=== PATIENT | female | born 1955 | race Caucasian/White ===

== ENCOUNTER 2017-10-21 12:37 | Emergency (ER) | payer BC ==
--- NOTE | 2017-10-21 12:57 | ERPHSYRPT ---
- History of Present Illness Time Seen by Provider: 10/21/17 12:50 Source: patient Exam Limitations: no limitations Patient Subjective Stated Complaint: Pt states "I have been fighting the ears and throat thing for a week or so now, but I have been having bouts of diziness and nausea for a couple of days. I tried to go to the clinic but since I really have not eaten for the past couple of days they told me I needed to go to the ED for some fluids or something." Triage Nursing Assessment: Pt alert and oriented X 3, skin pwd. Pt gets unsteady when she turns her head, no apparent respiratory distress, equal computer applications developer , no facial droop, clear speech. Physician History: 62 y/o white female presents with sinus congestion, tenderness and dizziness for 2 to 3 weeks. pt only tx with otc meds. pt has not been eating well or drinking well in last 2 days. concern for onset of nausea today prompted her to visit the walk in clinic. they sent her here for ivf and further management. Timing/Duration: gradual onset (over 2 to 3 weeks) Severity: mild ENT Location: ear (R), ear (L), nose Prearrival Treatment: over the counter meds Modifying Factors: Improves With: nothing Associated Symptoms: ear pain (R), ear pain (L), dizziness, nasal congestion/ drainage, sinus infection, sore throat Allergies/Adverse Reactions: No Known Drug Allergies Allergy (Verified 10/21/17 12:50) Home Medications: Levothyroxine Sodium 75 Mcg [Synthroid 75 Mcg] 75 mcg PO DAILY 03/28/15 [ History] Pravastatin Sodium [Pravachol] 40 mg PO DAILY 03/28/15 [History] Lisinopril 10 mg [Zestril 10 MG] 10 mg PO DAILY 10/21/17 [History] Hx Tetanus, Diphtheria Vaccination/Date Given: No Hx Influenza Vaccination/Date Given: No Hx Pneumococcal Vaccination/Date Given: No Immunizations Up to Date: Yes - Review of Systems Constitutional: No Symptoms, No Fever Eyes: No Symptoms, No Eye Pain Ears, Nose, & Throat: Ear Pain, Nose Pain, Nose Congestion, Nose Discharge, Sinus Drainage, Throat Pain Respiratory: No Symptoms, No Cough, No Dyspnea, No Stridor, No Wheezing Cardiac: No Symptoms, No Chest Pain, No Palpitations, No Syncope Abdominal/Gastrointestinal: No Symptoms, No Abdominal Pain, No Nausea, No Vomiting, No Diarrhea Genitourinary Symptoms: No Symptoms, No Dysuria, No Frequency, No Hematuria Musculoskeletal: No Symptoms, No Back Pain, No Neck Pain, No Fall, No Injury Skin: No Symptoms Neurological: Dizziness, No Gait Changes, No Headache Psychological: No Symptoms, No Alcohol Abuse, No Drug Abuse, No Anxiety Endocrine: No Symptoms Hematologic/Lymphatic: No Symptoms Immunological/Allergic: No Symptoms All Other Systems: Reviewed and Negative - Past Medical History Pertinent Past Medical History: Yes Neurological History: No Pertinent History ENT History: No Pertinent History Cardiac History: High Cholesterol Respiratory History: No Pertinent History Endocrine Medical History: Hypothyroidism Musculoskeletal History: Osteoporosis GI Medical History: No Pertinent History History: No Pertinent History Psycho-Social History: No Pertinent History Female Reproductive Disorders: No Pertinent History - Past Surgical History Past Surgical History: Yes Neuro Surgical History: No Pertinent History Cardiac: No Pertinent History Respiratory: No Pertinent History Gastrointestinal: No Pertinent History Genitourinary: No Pertinent History Musculoskeletal: Orthopedic Surgery Female Surgical History: Section, Tubal Ligation, Other Other Surgical History: D/C, ABLASION, CARPAL TUNNEL - Social History Smoking Status: Never smoker Exposure to second hand smoke: No Drug Use: none Patient Lives Alone: No - Female History Hx Now: No - Nursing Vital Signs Nursing Vital Signs: Initial Vital Signs Temperature 97.8 F 10/21/17 12:44 Pulse Rate 72 10/21/17 12:44 Respiratory Rate 18 10/21/17 12:44 Blood Pressure 145/90 10/21/17 12:44 O2 Sat by Pulse Oximetry 95 10/21/17 12:44 Pain Scale Pain Intensity 2 - Physical Exam General Appearance: mild distress, alert, anxiety Eye Exam: bilateral eye: normal inspection, PERRL, EOMI Ear Exam: bilateral ear: auricle normal, canal normal, TM normal Nasal Exam: sinus tenderness Throat Exam: normal, pharynx normal, pharynx tenderness, No dental tenderness, No excessive drooling, No pharynx swelling, No tongue swollen, No uvula swelling , No voice changes Neck Exam: normal inspection, non-tender, supple, full range of motion, trachea midline, No lymphadenopathy (L) Cardiovascular/Respiratory Exam: chest non-tender, normal breath sounds, regular rate/rhythm, heart sounds normal, no respiratory distress, normal peripheral pulses, No subcutaneous emphysema Abdominal Exam: non-tender, soft, no organomegaly, No guarding, No tenderness Neurologic Exam: alert, oriented x 3, cooperative, 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 Skin Exam: normal color, warm, dry SpO2 Interpretation: borderline oxygenation SpO2: 95 Oxygen Delivery: Room Air - Course Nursing assessment & vital signs reviewed: Yes Ordered Tests: Active Orders 24 hr Category Date Time Status IV Insertion STAT Care 10/21/17 13:08 Active BMP Stat Lab 10/21/17 13:35 Completed CBC W DIFF Stat Lab 10/21/17 13:35 Completed Medication Summary Discontinued Medications Generic Name Dose Route Start Last Admin Trade Name Freq PRN Reason Stop Dose Admin Ceftriaxone Sodium/Dextrose 1 g in 50 mls @ 100 mls/hr 10/21/17 13:10 13:25 Rocephin 1 Gm-D5w 50 Ml Bag IV 10/21/17 13:39 100 mls/hr STAT STA 100 mls/hr Administration Sodium Chloride 1,000 mls @ 999 mls/hr 10/21/17 13:08 10/21/17 13:25 Sodium Chloride 0.9% 1000 Ml IV 10/21/17 14:08 999 mls/hr .Q1H1M STA Administration Sodium Chloride Confirm 10/21/17 13:18 Sodium Chloride 0.9% 1000 Ml Administered 10/21/17 13:19 Dose 1,000 mls @ ud .ROUTE .STK-MED ONE Ceftriaxone Sodium/Dextrose Confirm 10/21/17 13:18 Rocephin 1 Gm-D5w 50 Ml Bag Administered 10/21/17 13:19 Dose 1 g in 50 mls @ ud IV .STK-MED ONE Methylprednisolone Sodium Succinate 125 mg 10/21/17 13:09 10/21/17 13:23 Solu-Medrol 125 Mg IV 10/21/17 13:10 125 mg STAT ONE Administration Methylprednisolone Sodium Succinate Confirm 10/21/17 13:18 Solu-Medrol 125 Mg Administered 10/21/17 13:19 Dose 125 mg .ROUTE .STK-MED ONE Promethazine HCl 12.5 mg 10/21/17 13:08 10/21/17 13:23 Phenergan 25 Mg Inj IV 10/21/17 13:09 12.5 mg STAT ONE Administration Promethazine HCl Confirm 10/21/17 13:18 Phenergan 25 Mg Inj Administered 10/21/17 13:19 Dose 25 mg .ROUTE .STK-MED ONE Lab/Rad Data: Laboratory Result Diagrams 10/21/17 13:35 10/21/17 13:35 Laboratory Results 10/21/17 10/21/17 Range/Units 13:35 13:35 WBC 4.7 (4.0-10.5) K/mm3 RBC 4.54 (4.1-5.4) M/mm3 Hgb 13.8 (12.0-16.0) gm/dl Hct 41.6 (35-47) % MCV 91.6 (78-100) fl MCH 30.4 (26-32) pg MCHC 33.2 (32-36) g/dl RDW 13.5 (11.5-14.0) % Plt Count 252 (150-450) K/mm3 MPV 10.4 H (6-9.5) fl Gran % 69.8 H (36.0-66.0) % Eos # (Auto) 0.11 (0-0.5) Absolute Lymphs (auto) 0.95 L (1.0-4.6) Absolute Monos (auto) 0.33 (0.0-1.3) Lymphocytes % 20.3 L (24.0-44.0) % Monocytes % 7.1 (0.0-12.0) % Eosinophils % 2.4 (0.00-5.0) % Basophils % 0.4 (0.0-0.4) % Absolute Granulocytes 3.27 (1.4-6.9) Basophils # 0.02 (0-0.4) Sodium 139 (137-145) mmol/L Potassium 4.6 (3.5-5.1) mmol/L Chloride 105 (98-107) mmol/L Carbon Dioxide 25 (22-30) mmol/L Anion Gap 12.9 (5-15) MEQ/L BUN 15 (7-17) mg/dL Creatinine 0.64 (0.52-1.04) mg/dL Estimated GFR > 60.0 ML/MIN Glucose 111 H (74-106) mg/dL Calcium 9.4 (8.4-10.2) mg/dL - Progress Progress: improved, re-examined Progress Note: 10/21/17 14:13 pt states she is feeling much better. Counseled pt/family regarding: lab results, diagnosis, need for follow-up - Departure Time of Disposition: 14:14 Departure Disposition: Home Clinical Impression: Sinusitis, Dizziness Condition: Stable Critical Care Time: No Referrals: BRIAN SMITH MD [Primary Care Provider] - Additional Instructions: drink plenty of fluids. follow up with primary for further management Prescriptions: Azithromycin 250 mg [Zithromax 250 MG TABLET] 250 mg PO ZPACK #6 tablet Prednisone 10 mg [Deltasone 10 mg] 10 mg PO TID #12 tablet
[2017-10-21] MEDS ORDERED: Sodium Chloride 0.9% 1000 ML 1,000 ML IV STA (13:08)
[2017-10-21] MEDS ORDERED: Phenergan 25 MG INJ IV ONE (13:08)
[2017-10-21] MEDS ORDERED: solu-MEDROL 125 MG IV ONE (13:09)
[2017-10-21] MEDS ORDERED: ROCEPHIN 1 Gm-D5w 50 ml Bag** 1 G/50 ML IVPB IV STA (13:10)
[2017-10-21] MEDS ORDERED: ROCEPHIN 1 Gm-D5w 50 ml Bag** 1 G/50 ML IVPB IV ONE (13:18)
[2017-10-21] MEDS ORDERED: solu-MEDROL 125 MG ONE (13:18)
[2017-10-21] MEDS ORDERED: Phenergan 25 MG INJ ONE (13:18)
[2017-10-21] MEDS ORDERED: Sodium Chloride 0.9% 1000 ML 1,000 ML ONE (13:18)
[2017-10-21 13:38] LABS: BASOPHIL % 0.4 % (0.0-0.4); Basophil (Absolute #) 0.02 (0-0.4); Eosinophil % 2.4 % (0.00-5.0); Eosinophil (Absolute #) 0.11 (0-0.5); Granulocyte Absolute (ANC) 3.27 (1.4-6.9); Granulocytes % 69.8 % (36.0-66.0); Hematocrit 41.6 % (35-47); Hemoglobin 13.8 gm/dl (12.0-16.0); Lymphocyte (Absolute #) 0.95 (1.0-4.6); Lymphocytes % 20.3 % (24.0-44.0); Mean Cell Volume 91.6 fl (78-100); Mean Corpuscular Hemoglobin 30.4 pg (26-32); Mean Corpuscular Hgb Concent. 33.2 g/dl (32-36); Mean Platelet Volume 10.4 fl (6-9.5); Monocyte (Absolute #) 0.33 (0.0-1.3); Monocytes % 7.1 % (0.0-12.0); Platelet Count 252 K/mm3 (150-450); Red Blood Count 4.54 M/mm3 (4.1-5.4); Red Cell Distribution Width 13.5 % (11.5-14.0); White Blood Count 4.7 K/mm3 (4.0-10.5)
[2017-10-21 14:03] LABS: ANION GAP 12.9 MEQ/L (5-15); BLOOD UREA NITROGEN 15 mg/dL (7-17); CHLORIDE 105 mmol/L (98-107); Calcium 9.4 mg/dL (8.4-10.2); Carbon Dioxide 25 mmol/L (22-30); Creatinine 1 0.64 mg/dL (0.52-1.04); Glucose 111 mg/dL (74-106); Potassium 4.6 mmol/L (3.5-5.1); SODIUM 139 mmol/L (137-145)
[2017-10-21 14:13] VITALS: BP 151/87; PULSE 81
[2017-10-21 14:19] VITALS: O2SAT 95
== END 2017-10-21 14:30 | disposition home or self-care (01) ==
LOC: ED 12:37
DX: J32.9 Chronic sinusitis, unspecified (principal); R42 Dizziness and giddiness; Z79.899 Other long term (current) drug therapy
CPT/HCPCS: 36000; 36415; 80048; 85025; 96360; 96365; 96374; 96375; 99284; J0696; J2550; J2930

== ENCOUNTER 2018-08-23 18:40 | Emergency (ER) | payer BC ==
[2018-08-23 18:54] VITALS: O2SAT 97
[2018-08-23] MEDS ORDERED: Adacel Vial IM ONE ×2 (19:29→19:31)
--- NOTE | 2018-08-23 19:35 | ERPHSYRPT ---
- History of Present Illness Time Seen by Provider: 08/23/18 19:24 Source: patient Exam Limitations: no limitations Patient Subjective Stated Complaint: states was standing by a ladder and a hammer fell off ladder and struck her on the forehead. has lac to forehead Triage Nursing Assessment: ambulated to room per self. skin w/d, color normal, a/o times three. superficial 2cm lac to forehead with minimal bleeding. Physician History: 62-year-old white female arrives with complaint of head contusion and a small laceration to her forehead. According to the patient she was near a ladder and a sledgehammer fell approximately 2-3 feet and hit her in the head this occurred around 6 PM. She has some mild tenderness in the area she has no loss of consciousness she has no nausea no vomiting no dizziness she has no neurologic changes. She does have approximately 2 cm fairly superficial laceration to her anterior forehead at the hairline. Past medical history includes hypercholesterolemia and osteoporosis Past surgical history includes tubal ligation orthopedic surgery carpal tunnel D&C uterine ablation Patient states her last tetanus was around 10 years ago. Timing/Duration: today (6 PM) Severity: mild Associated Symptoms: other (mild tenderness anterior forehead, 2 cm laceration forehead), No nausea, No vomiting, No abdominal pain, No shortness of breath, No heartburn, No diaphoresis, No cough, No chills, No chest pain, No fever, No headaches, No loss of appetite, No malaise, No rash, No syncope, No seizure, No weakness Allergies/Adverse Reactions: No Known Drug Allergies Allergy (Verified 08/23/18 18:49) Home Medications: Levothyroxine Sodium 75 Mcg [Synthroid 75 Mcg] 75 mcg PO DAILY 03/28/15 [ History] Pravastatin Sodium [Pravachol] 40 mg PO DAILY 03/28/15 [History] Lisinopril 10 mg [Zestril 10 MG] 10 mg PO DAILY 10/21/17 [History] Hx Tetanus, Diphtheria Vaccination/Date Given: No Hx Influenza Vaccination/Date Given: Yes Hx Pneumococcal Vaccination/Date Given: Yes - Review of Systems Constitutional: Other (mild tenderness anterior forehead), No Fever, No Chills Eyes: No Symptoms Ears, Nose, & Throat: No Symptoms Respiratory: No Cough, No Dyspnea Cardiac: No Chest Pain, No Edema, No Syncope Abdominal/Gastrointestinal: No Abdominal Pain, No Nausea, No Vomiting, No Diarrhea Genitourinary Symptoms: No Dysuria Musculoskeletal: No Back Pain, No Neck Pain Skin: Other (2 cm fairly superficial laceration forehead) Neurological: No Dizziness, No Focal Weakness, No Gait Changes, No Headache, No Irritability, No Lethargy, No Paralysis, No Parasthesia, No Seizure, No Sensory Changes, No Speech Changes, No Tics, No Tremors, No Vertigo Psychological: No Symptoms Endocrine: No Symptoms All Other Systems: Reviewed and Negative - Past Medical History Pertinent Past Medical History: Yes Neurological History: No Pertinent History ENT History: No Pertinent History Cardiac History: High Cholesterol Respiratory History: No Pertinent History Endocrine Medical History: Hypothyroidism Musculoskeletal History: Osteoporosis GI Medical History: No Pertinent History History: No Pertinent History Psycho-Social History: No Pertinent History Female Reproductive Disorders: No Pertinent History - Past Surgical History Past Surgical History: Yes Neuro Surgical History: No Pertinent History Cardiac: No Pertinent History Respiratory: No Pertinent History Gastrointestinal: No Pertinent History Genitourinary: No Pertinent History Musculoskeletal: Orthopedic Surgery Female Surgical History: Section, Tubal Ligation, Other Other Surgical History: D/C, ABLASION, CARPAL TUNNEL - Social History Smoking Status: Never smoker Exposure to second hand smoke: No Drug Use: none Patient Lives Alone: No - Female History Hx Now: No - Nursing Vital Signs Nursing Vital Signs: Initial Vital Signs Temperature 97.9 F 08/23/18 18:43 Pulse Rate 80 08/23/18 18:43 Respiratory Rate 16 08/23/18 18:43 Blood Pressure 151/74 08/23/18 18:43 O2 Sat by Pulse Oximetry 97 08/23/18 18:43 Pain Scale Pain Intensity 7 - Physical Exam General Appearance: mild distress, alert, other (2 cm fairly superficial laceration anterior forehead at the hairline, mild surrounding tenderness with palpation) Eye Exam: PERRL/EOMI, eyes nml inspection Ears, Nose, Throat Exam: normal ENT inspection, TMs normal, pharynx normal, moist mucous membranes Neck Exam: normal inspection, non-tender, supple, full range of motion Respiratory Exam: normal breath sounds, lungs clear, No respiratory distress Cardiovascular Exam: regular rate/rhythm, normal heart sounds, normal peripheral pulses, capillary refill <2 sec Gastrointestinal/Abdomen Exam: soft, normal bowel sounds, No tenderness, No mass Extremity Exam: normal inspection, normal range of motion, pelvis stable Neurologic Exam: alert, oriented x 3, cooperative, 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 She does not have any loss of consciousness she has some tenderness in the anterior forehead which is fairly mild. She has a 2 cm fairly superficial laceration to the anterior forehead. Her last tetanus was 10 years ago. Will go ahead and have the nurses clean the laceration and apply Dermabond. Will update the patient's tetanus. (DTaP) - Departure Departure Disposition: Home Clinical Impression: Head contusion Qualifiers: Encounter type: initial encounter Contusion of head detail: unspecified part of head Qualified Code(s): S00.93XA - Contusion of unspecified part of head, initial encounter Laceration of forehead Qualifiers: Encounter type: initial encounter Qualified Code(s): S01.81XA - Laceration without foreign body of other part of head, initial encounter Condition: Fair Critical Care Time: No Referrals: BRIAN SMITH MD [Primary Care Provider] - Instructions: Closed Head Injury (DC) Additional Instructions: Return home. Do not apply ointments to Dermabond. Cold packs to area 24-48 hours. Tylenol every 4 hours as needed for pain. Return for acute distress severe symptoms or for any problems. Followup with your family doctor if any problems.
[2018-08-23 19:44] VITALS: BP 157/83; PULSE 74
== END 2018-08-23 19:50 | disposition home or self-care (01) ==
LOC: ED 18:40
DX: S00.93XA Contusion of unspecified part of head, initial encounter (principal); S01.81XA Laceration without foreign body of other part of head, initial encounter; W20.8XXA Other cause of strike by thrown, projected or falling object, initial encounter; E78.00 Pure hypercholesterolemia, unspecified; M81.0 Age-related osteoporosis without current pathological fracture
CPT/HCPCS: 12011; 90471; 90715; 99283

== ENCOUNTER 2023-09-05 01:58 | Emergency (ER) | payer MEDICARE ==
--- NOTE | 2023-09-05 02:10 | ERPHSYRPT ---
- History of Present Illness Time Seen by Provider: 09/05/23 02:10 Source: patient, family Exam Limitations: no limitations Physician History: This is a 67-year-old white female patient who was brought in to the hospital emergency department by her and is a patient of Dr. Smith. Her complaint today is relatively abrupt onset of sharp shooting pain that begins in her ear and shoots into right side of her face, right side of her neck and right upper chest primarily when lying flat. It began at 2200 on 09/04/2023. She has never had this before. There is been no new changes in her medication. There is been no trauma to the area. The pain subsides when standing and ambulating and worsens when she is lying flat. Patient has a history of hypertension, hy perlipidemia and hypothyroidism. She denies fever. She denies shortness of breath. Timing/Duration: abrupt onset Severity: moderate ENT Location: ear (R) Prearrival Treatment: no prearrival treatment Modifying Factors: Improves With: lying down (Worsens), other (Standing up and ambulating lessens pain) Associated Symptoms: ear pain (R), change in hearing, facial pain/swelling (Side), No ear drainage, No hearing loss, No jaw pain, No neck pain, No tooth pain, No difficulty swallowing Allergies/Adverse Reactions: No Known Drug Allergies Allergy (Unverified 09/05/23 02:08) Home Medications: Levothyroxine Sodium 75 Mcg [Synthroid 75 Mcg] 75 mcg PO DAILY 09/05/23 [History] Lisinopril 10 mg [Zestril 10 MG] 10 mg PO DAILY 09/05/23 [History] Pravastatin Sodium 40 mg PO DAILY 09/05/23 [History] Solifenacin Succinate [Vesicare] 5 mg PO DAILY 09/05/23 [History] Vibegron [Gemtesa] 75 mg PO DAILY 09/05/23 [History] Travel Risk - International Travel Have you traveled outside of the country in past 3 weeks: No - Emerging Infectious Disease Are you exhibiting symptoms associated with any current EIDs: No - Review of Systems Constitutional: No Symptoms Eyes: No Symptoms Ears, Nose, & Throat: Ear Pain (Right side) Respiratory: No Symptoms Cardiac: No Symptoms Abdominal/Gastrointestinal: No Symptoms Genitourinary Symptoms: No Symptoms Musculoskeletal: No Symptoms Skin: No Symptoms Neurological: No Symptoms Psychological: No Symptoms Hematologic/Lymphatic: No Symptoms Immunological/Allergic: No Symptoms All Other Systems: Reviewed and Negative - Past Medical History Pertinent Past Medical History: Yes - Past Surgical History Past Surgical History: Yes - Nursing Vital Signs Nursing Vital Signs: Initial Vital Signs Pulse Rate 82 09/05/23 02:06 Blood Pressure 160/80 09/05/23 02:06 O2 Sat by Pulse Oximetry 96 09/05/23 02:06 Pain Scale Pain Intensity 6 - Physical Exam General Appearance: no apparent distress, alert, anxiety Eye Exam: bilateral eye: normal inspection, PERRL, EOMI Ear Exam: bilateral ear: auricle normal, canal normal, TM normal Nasal Exam: normal inspection Throat Exam: normal, pharynx normal, foreign body, moist mucus membranes, No dental tenderness Neck Exam: normal inspection, non-tender, supple, full range of motion, trachea midline Cardiovascular/Respiratory Exam: chest non-tender, normal breath sounds, regular rate/rhythm, heart sounds normal, no respiratory distress Abdominal Exam: non-tender Neurologic Exam: alert, oriented x 3, cooperative, 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, nml cerebellar function, nml station & gait, sensation nml Skin Exam: normal color, warm, dry SpO2 Interpretation: normal O2 Delivery: Room Air - Course Nursing assessment & vital signs reviewed: Yes EKG Interpreted by Me: RATE (76), Sinus Rhythm, NORMAL AXIS, NORMAL INTERVALS, NORMAL QRS, NORMAL ST-T, Other (No acute ischemia) Ordered Tests: Active Orders 24 hr Category Date Time Status EKG-ER Only STAT Care 09/05/23 02:20 Active BMP Stat Lab 09/05/23 02:20 Completed CBC W DIFF Stat Lab 09/05/23 02:35 Completed CMP Stat Lab 09/05/23 02:20 Completed MAG [MAGNESIUM] Stat Lab 09/05/23 02:20 Completed TROPONIN Q4H Lab 09/05/23 02:30 Completed TROPONIN Q4H Lab 09/05/23 06:30 Ordered TROPONIN Q4H Lab 09/05/23 10:30 Ordered Medication Summary Discontinued Medications Generic Name Dose Route Start Last Admin Trade Name Freq PRN Reason Stop Dose Admin Amitriptyline HCl 10 mg 09/05/23 02:24 09/05/23 02:32 Amitriptyline Hcl 10 Mg Tablet PO 09/05/23 02:25 10 mg STAT ONE Administration Prednisone 20 mg 09/05/23 02:24 09/05/23 02:32 Prednisone 20 Mg Tablet PO 09/05/23 02:25 20 mg STAT ONE Administration Prednisone Confirm 09/05/23 02:27 Prednisone 20 Mg Tablet Administered 09/05/23 02:28 Dose 20 mg .ROUTE .STK-MED ONE Lab/Rad Data: Laboratory Result Diagrams 09/05/23 02:35 09/05/23 02:20 Laboratory Results 09/05/23 09/05/23 09/05/23 Range/Units 02:35 02:30 02:20 WBC 5.3 (3.98-10.04) x10^3/uL RBC 4.41 (3.93-5.22) x10^6/uL Hgb 13.2 (11.2-15.7) g/dL Hct 40.8 (34.1-44.9) % MCV 92.5 (79.4-94.8) fL MCH 29.9 (25.6-32.2) pg MCHC 32.4 (32.2-35.5) g/dL RDW 13.2 (11.7-14.4) % Plt Count 235 (182-369) x10^3/uL MPV 10.5 (9.4-12.3) fL Gran % 42.0 (34.0-71.1) % Immature Gran % (Auto) 0.2 (0.001-0.429) % Nucleat RBC Rel Count 0.0 (0.00-0.2) % Eos # (Auto) 0.21 (0.04-0.36) x10^3/uL Immature Gran # (Auto) 0.01 (0.001-0.031) x10^3u/L Absolute Lymphs (auto) 2.24 (1.18-3.74) x10^3/uL Absolute Monos (auto) 0.56 (0.24-0.86) x10^3/uL Absolute Nucleated RBC 0.00 (0.00-0.012) x10^3u/L Lymphocytes % 42.3 (19.3-51.7) % Monocytes % 10.6 (4.7-12.5) % Eosinophils % 4.0 (0.7-5.8) % Basophils % 0.9 (0.1-1.2) % Absolute Granulocytes 2.23 (1.56-6.13) x10^3/uL Basophils # 0.05 (0.01-0.08) x10^3/uL Sodium 138 (135-145) mmol/L Potassium 4.2 (3.5-5.1) mmol/L Chloride 107 (98-107) mmol/L Carbon Dioxide 23 (22-30) mmol/L Anion Gap 12.3 (5-15) MEQ/L BUN 18 H (7-17) mg/dL Creatinine 0.78 (0.52-1.04) mg/dL Estimated GFR 82.7 ML/MIN Glucose 115 H (74-106) mg/dL Calcium 9.1 (8.4-10.2) mg/dL Magnesium 2.2 (1.6-2.3) mg/dL Total Bilirubin 0.60 (0.2-1.3) mg/dL AST 25 (14-36) U/L ALT 26 (0-35) U/L Alkaline Phosphatase 118 (38-126) U/L Troponin I < 0.012 (0.000-0.033) ng/mL Serum Total Protein 6.5 (6.3-8.2) g/dL Albumin 3.8 (3.5-5.0) g/dL - Progress Progress Note: 09/05/23 02:30 My medical decision making and the assignment of moderate complexity to this patient's medical issue today is based on review of the patient's past medical history, review of the patient's medication list, history present illness and physical findings on examination. The workup in this patient today includes CBC, BMP, magnesium level, troponin level, twelve-lead EKG and providing the patient with prednisone 20 mg and amitriptyline 10 mg orally. Differential diagnosis includes but is not limited to nerve pain, electrolyte abnormalities, myocardial infarction, electrolyte abnormalities 09/05/23 03:09 I interpreted the patient's laboratory data results. Based on the laboratory data results, the patient does not have any acute, emergent medical issue. Counseled pt/family regarding: lab results, diagnosis, need for follow-up Medical Desision Making - Independent Historian Additional History obtained from: Spouse - Diagnostic Testing Diagnostic test were ordered, analyzed, and reviewed by me: Yes - Risk of complications The pt has a mod risk of morbidity or mortality based on: Need for prescription drug management - Departure Departure Disposition: Home Clinical Impression: Neuralgia Condition: Stable Critical Care Time: No Referrals: BRIAN SMITH MD [Primary Care Provider] - Follow up/PCP as directed Additional Instructions: Take your medication as prescribed. Call your primary care provider today, 09/05/2023, to make arrangements for a follow-up appointment to be seen in the next 3 to 5 days. Prescriptions: Prednisone 10 mg [Deltasone 10 mg] 10 mg PO TID #12 tablet
[2023-09-05 02:19] VITALS: RESP 18; TEMP 97.3
[2023-09-05] MEDS ORDERED: DELTASONE 20 MG ONE (02:27)
[2023-09-05] MEDS: DELTASONE 20 MG PO ONE (02:32)
[2023-09-05] MEDS: ELAVIL 10 MG PO ONE (02:32)
[2023-09-05 02:43] LABS: Absolute Neutrophil Ct (ANC) 2.23 x10^3/uL (1.56-6.13); BASOPHIL % 0.9 % (0.1-1.2); Basophil (Absolute #) 0.05 x10^3/uL (0.01-0.08); Eosinophil (Absolute #) 0.21 x10^3/uL (0.04-0.36); Hematocrit 40.8 % (34.1-44.9); Hemoglobin 13.2 g/dL (11.2-15.7); IMMATURE GRAN # 0.01 x10^3u/L (0.001-0.031); IMMATURE GRAN % 0.2 % (0.001-0.429); Lymphocyte (Absolute #) 2.24 x10^3/uL (1.18-3.74); Lymphocytes % 42.3 % (19.3-51.7); Mean Cell Volume 92.5 fL (79.4-94.8); Mean Corpuscular Hemoglobin 29.9 pg (25.6-32.2); Mean Corpuscular Hgb Concent. 32.4 g/dL (32.2-35.5); Mean Platelet Volume 10.5 fL (9.4-12.3); Monocyte (Absolute #) 0.56 x10^3/uL (0.24-0.86); Monocytes % 10.6 % (4.7-12.5); Platelet Count 235 x10^3/uL (182-369); Red Blood Count 4.41 x10^6/uL (3.93-5.22); Red Cell Distribution Width 13.2 % (11.7-14.4); White Blood Count 5.3 x10^3/uL (3.98-10.04)
[2023-09-05 02:52] LABS: ALBUMIN 3.8 g/dL (3.5-5.0); ANION GAP 12.3 MEQ/L (5-15); BILIRUBIN,TOTAL 0.6 mg/dL (0.2-1.3); Calcium 9.1 mg/dL (8.4-10.2); Creatinine 1 0.78 mg/dL (0.52-1.04); EST GLOMERULAR FILTRATION RATE 82.7 ML/MIN; MAGNESIUM 2.2 mg/dL (1.6-2.3); Potassium 4.2 mmol/L (3.5-5.1); Total Protein 6.5 g/dL (6.3-8.2)
[2023-09-05 03:04] VITALS: PULSE 81; O2SAT 97
[2023-09-05 03:34] VITALS: BP 149/90
== END 2023-09-05 03:33 | disposition home or self-care (01) ==
LOC: ED 01:58 → MERGE 01:58 → ED 03:33
DX: M79.2 Neuralgia and neuritis, unspecified (principal); R51.9 Headache, unspecified; M54.2 Cervicalgia; R07.9 Chest pain, unspecified; I10 Essential (primary) hypertension; E78.5 Hyperlipidemia, unspecified; Z79.52 Long term (current) use of systemic steroids; Z79.899 Other long term (current) drug therapy
CPT/HCPCS: 36415; 80048; 80053; 83735; 84484; 85025; 93005; 99283; A9270-GY